=== PATIENT | female | born 1995 | race African-American/Black ===

== ENCOUNTER 2019-09-06 15:33 | Outpatient (CLI) | payer SELFPAY | END 2019-09-06 15:34 | disposition EMS.NT | LOC: EMS 15:33 | PROVIDERS: ATTEND Surgery | DX: M25.532 Pain in left wrist (principal) ==

== ENCOUNTER 2021-09-13 19:36 | Emergency (ER) | payer SELFPAY ==
[2021-09-13 19:51] VITALS: BP 120/73
--- NOTE | 2021-09-13 21:33 | ED Physician Documentation ---
History of Present Illness - Stated complaint Stated Complaint: LT LEG PX - Chief complaint Chief Complaint: Ext Problem - History obtained from History obtained from: Patient - History of Present Illness Pain level max: 7 Pain level now: 3 - Additonal information Additional information: Patient is a 25-year-old male who complains of left leg pain for several days. Nothing seems to make it better or worse. He says it comes and goes. He states that it feels like a pressure from his ankle to his hip. Does not recall any injury. He states that he uses fentanyl that he buys off of the street and has been using fentanyl for about the past 2 years. He spoke to his mother who was concerned about a possible blood clot. Patient states he has not noticed any swelling. He denies any IV or subcutaneous drug use. No recent surgeries or travel. Review of Systems Constitutional: denies: Fever GI: denies: Vomiting, Diarrhea Skin: denies: Rash Musculoskeletal: denies: Neck pain, Back pain Neurologic: denies: Headache PD PAST MEDICAL HISTORY - Past Medical History Past Medical History: No - Past Surgical History Past Surgical History: No - Allergies Allergies/Adverse Reactions: Allergies Allergy/AdvReac Type Severity Reaction Status Date / Time No Known Drug Allergies Allergy Verified 09/13/21 19:49 - Social History Does the pt smoke?: No Smoking Status: Never smoker Does the pt drink ETOH?: No Does the pt have substance abuse?: Yes Substance Use and Type: Prescription Pills, Other - Immunizations Immunizations are current?: No Immunizations: TDAP >10years/unknown PD ED PE NORMAL - Vitals Vital signs reviewed: Yes - General General: Alert and oriented X 3, No acute distress - HEENT HEENT: Moist mucous membranes - Neck Neck: Supple, no meningeal sign - Cardiac Cardiac: RRR, Strong equal pulses - Respiratory Respiratory: No respiratory distress, Clear bilaterally - Derm Derm: Warm and dry - Extremities Extremities: No deformity, No tenderness to palpate, Normal ROM s pain, No edema, No calf tenderness / cord, Other (Normal examination of the bilateral lower extremities, hips, knees, ankles. Neurovascular intact.) - Neuro Neuro: Alert and oriented X 3 Results - Vitals Vitals: Vital Signs - 24 hr 09/13/21 19:44 Temperature 36.4 C L Heart Rate 103 H Respiratory 16 Rate Blood Pressure 120/73 O2 Saturation 100 Oxygen O2 Source Room air PD MEDICAL DECISION MAKING - ED course Complexity details: considered differential, d/w patient ED course: Unclear etiology of the patient's symptoms. A duplex ultrasound was ordered to exclude DVT. Initially the patient was agreeable to this, however he came to the nurses and stated that his ride had to leave and so he would be leaving the emergency department and would return for repeat evaluation when he can get another ride. The patient then left the emergency department. I did not have a chance to speak with the patient prior to him leaving and was not notified before the patient actually left the emergency department. Departure - Departure Disposition: Against Medical Advice Clinical Impression: Pain of lower extremity Qualifiers: Laterality: left Qualified Code(s): M79.605 - Pain in left leg Condition: Stable Discharge Date/Time: 09/13/21 21:30
== END 2021-09-13 21:30 | disposition left against medical advice (07) ==
LOC: EDSEX 19:36 → ED 19:36
DX: M79.605 Pain in left leg (principal)
CPT/HCPCS: 99281; 99282

== ENCOUNTER 2022-12-26 01:27 | Outpatient (CLI) | payer SELFPAY | END 2022-12-26 23:59 | disposition critical access hospital (66) | LOC: EMS 01:27 | DX: T40.2X1A Poisoning by other opioids, accidental (unintentional), initial encounter (principal); R11.2 Nausea with vomiting, unspecified; R53.83 Other fatigue | CPT/HCPCS: A0425; A0429 ==

== ENCOUNTER 2022-12-26 01:51 | Emergency (ER) | payer SELFPAY ==
--- NOTE | 2022-12-26 04:33 | ED Physician Documentation ---
History of Present Illness - Stated complaint Stated Complaint: OD - Chief complaint Chief Complaint: General - History obtained from History obtained from: Patient, EMS - Additonal information Additional information: The patient is brought to the emergency department by EMS for chief complaint of having smoked fentanyl and a pipe. Patient thought that the fentanyl he had may have been blues and his friends were concerned. Patient states he was doing it recreationally and was not intending to try to harm himself. The friends had told EMS that the patient went missing for about an hour and when they found him, they realized he had been smoking the pipe. He was given an nasal dose of Narcan on scene with no change in his status. The patient was awake the whole time and has been breathing without difficulty, but does complain of being drowsy. He denies taking any other substances. He currently lives at a sober house but managed to get away to get a hold of the fentanyl. It has been about 1-1/2 to 2 hours since he smoked the fentanyl. He does not feel that he is declining but does feel rather drowsy. No other complaints at this time. The medics state the patient has been stable for them. PD PAST MEDICAL HISTORY - Past Medical History Past Medical History: No - Past Surgical History Past Surgical History: No - Present Medications Home Medications: Ambulatory Orders Medication Instructions Recorded Confirmed No Known Home Medications 12/26/22 12/26/22 - Allergies Allergies/Adverse Reactions: Allergies Allergy/AdvReac Type Severity Reaction Status Date / Time No Known Drug Allergies Allergy Verified 12/26/22 02:06 - Social History Does the pt smoke?: Yes Smoking Status: Current every day smoker Does the pt drink ETOH?: No Does the pt have substance abuse?: Yes Substance Use and Type: Other - Immunizations Immunizations are current?: No Immunizations: TDAP >10years/unknown PD ED PE NORMAL - Vitals Vital signs reviewed: Yes - General General: Alert and oriented X 3, No acute distress, Well developed/nourished, Other (Patient is sleeping in bed upon my arrival in the room but easily arouses and answers all questions without difficulty. 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 He had oxygen saturation in the high 90s to 100% on room air, and normal heart rate in the 80s with what appeared to be normal sinus rhythm and normal Blood pressure. The patient stated he really did not want to have an IV or blood draw if he did not have to and since he was so stable, I did not have an IV placed. I did not feel that labs would add anything to the patient's management at this time so I did not order labs either. On reevaluation the patient had not shown any signs of decline whatsoever and was stable for discharge home. He has been instructed regarding further options and resources for help with his drug abuse. Departure - Departure Disposition: 01 Home, Self Care Clinical Impression: Fentanyl use disorder, mild, abuse Condition: Stable Instructions: ED Drug Abuse General, ED Narcotic Abuse Discharge Date/Time: 12/26/22 05:20
[2022-12-26 05:20] VITALS: BP 113/87
== END 2022-12-26 05:20 | disposition home or self-care (01) ==
LOC: EDUNIT# → ED 01:51
DX: F19.10 Other psychoactive substance abuse, uncomplicated (principal); F17.200 Nicotine dependence, unspecified, uncomplicated
CPT/HCPCS: 99282; 99283

== ENCOUNTER 2023-08-18 16:08 | Emergency (ER) | payer MEDICAID, OTHER ==
[2023-08-18 16:24] VITALS: O2SAT 100
[2023-08-18] MEDS ORDERED: SULFAMETH/TRIMETH DS 800/160 MG TABLET PO STA (16:47)
[2023-08-18] MEDS ORDERED: cephALEXin 250 MG CAPSULE PO STA (16:47)
--- NOTE | 2023-08-18 16:48 | ED Physician Documentation ---
PD HPI LOWER EXT INJURY - Stated complaint Stated Complaint: RT ANKLE PX - Chief complaint Chief Complaint: Ext Problem - History obtained from History obtained from: Patient - Additional information Additional information: Patient is a 27-year-old male presenting for evaluation of redness and swelling to the right ankle that he noticed today. He has had a wound to the right lower leg that is been present for 4 to 5 months and is unsure how he got it. He does have dry skin and reports often itching at the area. Patient denies IV drug use. Denies any known trauma. Review of Systems Constitutional: denies: Fever Musculoskeletal: reports: Extremity swelling Neurologic: denies: Head injury PD PAST MEDICAL HISTORY - Past Medical History Past Medical History: Yes Cardiovascular: None Respiratory: None Neuro: None Endocrine/Autoimmune: None GI: GERD : None HEENT: None Psych: None Musculoskeletal: None Derm: Other - Past Surgical History Past Surgical History: No - Present Medications Home Medications: Ambulatory Orders Medication Instructions Recorded Confirmed Sulfamethox/Trimeth 800/160 1 each PO BID #20 tablet 08/18/23 [Bactrim Ds 800/160] cephALEXin [Keflex] 500 mg PO Q6H #40 cap 08/18/23 - Allergies Allergies/Adverse Reactions: Allergies Allergy/AdvReac Type Severity Reaction Status Date / Time No Known Drug Allergies Allergy Verified 08/18/23 16:11 - Social History Does the pt smoke?: Yes Smoking Status: Current every day smoker Does the pt drink ETOH?: No Does the pt have substance abuse?: Yes Substance Use and Type: Marijuana - Immunizations Immunizations are current?: Yes Immunizations: TDAP >10years/unknown PD ED PE NORMAL - General General: Alert and oriented X 3, No acute distress, Well developed/nourished - HEENT HEENT: Atraumatic - Neck Neck: Supple, no meningeal sign - Cardiac Cardiac: Strong equal pulses - Respiratory Respiratory: No respiratory distress - Derm Derm: Other (1.5 cm circular open wound to distal right lower extremity on the lateral aspect, there is surrounding redness and swelling To the site with spread towards the right ankle on the lateral surface, no fluctuance to suggest abscess) Results - Vitals Vitals: Vital Signs - 24 hr 08/18/23 08/18/23 16:12 17:05 Temperature 36.3 C L 36.3 C L Heart Rate 83 99 Respiratory 18 16 Rate Blood Pressure 119/76 106/82 H O2 Saturation 100 100 Oxygen O2 Source Room air PD Medical Decision Making - ED course ED course: Patient with redness and swelling to right ankle with wound just above this area. Vital signs are stable. An x-ray was obtained which I reviewed I see no fracture dislocation or signs of a foreign body. Exam findings are consistent with cellulitis. I do not think he has a septic joint. Involvement appears to be only the lateral aspect. Patient counseled regarding treatment plan and will start on antibiotics. He is also advised on strict return precautions for any worsening symptoms. Departure - Departure Disposition: Home, Self Care Clinical Impression: Cellulitis of right ankle Condition: Stable Instructions: ED Infec Skin Cellulitis Prescriptions: Sulfamethox/Trimeth 800/160 [Bactrim Ds 800/160] 1 each PO BID #20 tablet cephALEXin [Keflex] 500 mg PO Q6H #40 cap Comments: I am starting you on 2 antibiotics for the treatment of a skin infection causing your redness and swelling around the right ankle. We have also given you crutches if it is hurting to ambulate with the swelling present. I would encourage you to elevate the leg to help with the swelling as well as make sure you are taking the antibiotics as directed. Return to the ER if your symptoms are not improving or certainly if there is any worsening such as increased redness or swelling or fevers. Your prescriptions were sent to [facility] in [place]. Forms: PCP List
[2023-08-18 17:11] VITALS: BP 106/82
--- NOTE | 2023-08-18 17:29 | XRAY Report ---
PROCEDURE: Ankle 3 View RT INDICATIONS: swelling TECHNIQUE: 3 views of the ankle were acquired. COMPARISON: None FINDINGS: Bones: No fractures or dislocations. Ankle mortise is normally aligned. No suspicious bony lesions . Soft tissues: Lateral soft tissue swelling. IMPRESSION: Soft tissue swelling without fracture or foreign body Reviewed by: William Daley MD on 08/18/2023 4:28 PM [place] Approved by: William Daley MD on 08/18/2023 4:28 PM [place] Station ID: [id number]
== END 2023-08-18 17:15 | disposition home or self-care (01) ==
LOC: ED 16:08
DX: L03.115 Cellulitis of right lower limb (principal); F17.200 Nicotine dependence, unspecified, uncomplicated
CPT/HCPCS: 73610; 99283; A9270

== ENCOUNTER 2023-08-19 03:33 | Outpatient (CLI) | payer MEDICAID | END 2023-08-19 03:34 | disposition EMS.NT | LOC: EMS 03:33 | DX: M25.561 Pain in right knee (principal); M25.551 Pain in right hip ==

== ENCOUNTER 2023-08-25 11:17 | Outpatient (CLI) | payer MEDICAID | END 2023-08-25 11:18 | disposition critical access hospital (66) | LOC: EMS 11:17 | DX: R10.10 Upper abdominal pain, unspecified (principal); R11.2 Nausea with vomiting, unspecified | CPT/HCPCS: A0425; A0429; A0999 ==

== ENCOUNTER 2023-08-25 11:40 | Emergency (ER) | payer MEDICAID ==
[2023-08-25] MEDS ORDERED: ONDANSETRON ODT 4 MG TABLET TL STA (11:50)
[2023-08-25 11:54] VITALS: BP 121/60; O2SAT 100
[2023-08-25 12:04] LABS: BILIRUBIN,URINE NEGATIVE (NEGATIVE); GLUCOSE, URINE (UA) NEGATIVE (NEGATIVE); KETONES,URINE (UA) NEGATIVE (NEGATIVE); LEUKOCYTE ESTERASE, URINE NEGATIVE (NEGATIVE); NITRITE,URINE NEGATIVE (NEGATIVE); OCCULT BLOOD,URINE NEGATIVE (NEGATIVE); PROTEIN,URINE NEGATIVE (NEGATIVE); UROBILINOGEN,URINE 0.2 (NORMAL) E.U./dL (NORMAL)
[2023-08-25 12:10] LABS: CLARITY,URINE CLEAR (CLEAR)
[2023-08-25 13:33] LABS: COCAINE SCREEN URINE NEGATIVE (NEGATIVE); METHAMPHETAMINES SCREEN, URINE POSITIVE (NEGATIVE); THC CANNABINOID SCREEN, URINE POSITIVE (NEGATIVE)
[2023-08-25 13:34] LABS: AMPHETAMINE SCREEN,URINE POSITIVE (NEGATIVE); BARBITURATE SCREEN,UR NEGATIVE (NEGATIVE); BENZODIAZEPINES SCREEN, URINE NEGATIVE (NEGATIVE); BUPRENORPHINE SCREEN, URINE POSITIVE (NEGATIVE); METHADONE SCREEN, URINE NEGATIVE (NEGATIVE); OPIATE SCREEN, URINE NEGATIVE (NEGATIVE); OXYCODONE SCREEN, URINE NEGATIVE (NEGATIVE); TRICYCLIC ANTIDEPRESSANT,URINE NEGATIVE (NEGATIVE)
--- NOTE | 2023-08-25 13:56 | ED Physician Documentation ---
PD HPI ABD PAIN - Stated complaint Stated Complaint: ABD PX/NV - Chief complaint Chief Complaint: Abd Pain - History obtained from History obtained from: Patient PD PAST MEDICAL HISTORY - Past Medical History Past Medical History: Yes Cardiovascular: None Respiratory: None Neuro: None Endocrine/Autoimmune: None GI: GERD : None HEENT: None Psych: None Musculoskeletal: None Derm: Other - Past Surgical History Past Surgical History: No - Present Medications Home Medications: Ambulatory Orders Medication Instructions Recorded Confirmed Sulfamethox/Trimeth 800/160 1 each PO BID #20 tablet 08/18/23 08/25/23 [Bactrim Ds 800/160] cephALEXin [Keflex] 500 mg PO Q6H #40 cap 08/18/23 08/25/23 - Allergies Allergies/Adverse Reactions: Allergies Allergy/AdvReac Type Severity Reaction Status Date / Time No Known Drug Allergies Allergy Verified 08/25/23 11:43 - Social History Does the pt smoke?: Yes Smoking Status: Current every day smoker Does the pt drink ETOH?: No Does the pt have substance abuse?: Yes - Immunizations Immunizations are current?: Yes Immunizations: TDAP >10years/unknown Results - Vitals Vitals: Vital Signs - 24 hr 08/25/23 11:44 Temperature 37 C Heart Rate 75 Respiratory 18 Rate Blood Pressure 121/60 O2 Saturation 100 Oxygen O2 Source Room air - Labs Labs: Laboratory Tests 08/25/23 08/25/23 12:00 12:30 Urine Color DARK YELLOW Urine Clarity CLEAR Urine pH 6.0 Ur Specific [place] >=1.030 H Urine Protein NEGATIVE Urine Glucose (UA) NEGATIVE Urine Ketones NEGATIVE Urine Occult Blood NEGATIVE Urine Nitrite NEGATIVE Urine Bilirubin NEGATIVE Urine Urobilinogen 0.2 (NORMAL) Ur Leukocyte Esterase NEGATIVE Ur Microscopic Review NOT INDICATED Urine Culture Comments NOT INDICATED Urine Opiates Screen NEGATIVE Ur Buprenorphine Scrn POSITIVE H Ur Oxycodone Screen NEGATIVE Urine Methadone Screen NEGATIVE Ur Barbiturates Screen NEGATIVE Ur Tricyclics Screen NEGATIVE Ur Phencyclidine Scrn NEGATIVE Ur Amphetamine Screen POSITIVE H U Methamphetamines Scrn POSITIVE H U Benzodiazepines Scrn NEGATIVE Urine Cocaine Screen NEGATIVE U Cannabinoids Screen POSITIVE H Ur Drug Screen Comment CUTOFF CONC BELOW: Departure - Departure
== END 2023-08-25 15:34 | disposition left against medical advice (07) ==
LOC: EDUNIT# → ED 11:40
DX: Z53.21 Procedure and treatment not carried out due to patient leaving prior to being seen by health care provider (principal)
CPT/HCPCS: 80306; 81003; Q0162; 80053; 81001; 83690; 85025; 87086

== ENCOUNTER 2023-12-27 15:33 | Outpatient (CLI) | payer MEDICAID | END 2023-12-27 23:59 | disposition short-term general hospital (02) | LOC: EMS 15:33 | DX: M54.2 Cervicalgia (principal); R51.9 Headache, unspecified | CPT/HCPCS: A0425; A0429; A0999 ==